=== PATIENT | male | born 1950 | race Caucasian/White ===

== ENCOUNTER 2020-12-09 06:38 | Day surgery (SDC) | payer BC, MEDICARE ==
[2020-12-09] MEDS ORDERED: Sodium Chloride 0.9% 1,000 ML IV SCH (07:00)
[2020-12-09] MEDS ORDERED: Midazolam 1 MG/ML 2 ML SDV ONE (07:16)
[2020-12-09] MEDS ORDERED: fentaNYL 100 MCG/2 ML SDV ONE (07:16)
[2020-12-09] MEDS ORDERED: Propofol 200 MG/20 ML SDV ONE (07:16)
--- NOTE | 2020-12-09 12:08 | OR ---
DATE OF PROCEDURE: 12/09/2020 SURGEON: Edward Barksdale MD PROCEDURE: Colonoscopy. FINDINGS: 1. Multiple small benign-appearing polyps in the ileum. 2. Diverticulosis, mild, mostly limited to sigmoid colon. PREOPERATIVE DIAGNOSIS: Screening colonoscopy. POSTOPERATIVE DIAGNOSIS: Screening colonoscopy. RISKS: Risks, benefits, alternatives, and limitations including, but not limited to infection, bleeding, perforation, false positives and false negatives were explained to the patient who wished to proceed. PROCEDURE IN DETAIL: The patient was placed in left lateral decubitus position. Digital rectal exam was performed without abnormality. Scope was introduced and advanced atraumatically to the ileocecal valve. A photo was taken of this. The ileum was cannulated. The patient had a few small benign-appearing polyps within the distal ileum. A few of these were sampled for pathological purposes. They did not appear to be bleeding nor inflamed. Scope was brought back to the remainder of the colon and retroflexed. The patient had diverticulosis that was described as mild without evidence of diverticulitis or bleeding. No abnormalities on retroflexion. No old or new blood. The prep was acceptable, approximately 90% of the luminal surface could be seen. The scope was then brought back up to the sigmoid colon. In the ascending colon, no abnormalities were noted. The patient tolerated the procedure well. Edward Barksdale MD /[id number]
== END 2020-12-09 09:36 | disposition home or self-care (01) ==
LOC: JP.SDS 06:38
PROVIDERS: ATTEND Surgery
DX: Z12.11 Encounter for screening for malignant neoplasm of colon (principal); K57.30 Diverticulosis of large intestine without perforation or abscess without bleeding; K63.89 Other specified diseases of intestine; E11.9 Type 2 diabetes mellitus without complications; I10 Essential (primary) hypertension; E78.5 Hyperlipidemia, unspecified; E66.9 Obesity, unspecified; Z68.28 Body mass index [BMI] 28.0-28.9, adult; Z88.6 Allergy status to analgesic agent
CPT/HCPCS: 45380; 88305; J2250; J2704; J3010; J7030

== ENCOUNTER 2025-06-10 15:57 | Emergency (ER) | payer MEDICARE, BC ==
[2025-06-10] MEDS ORDERED: Nitroglycerin 0.4 MG Tab.SL SL PRN (16:10)
[2025-06-10 16:23] LABS: BASOPHILS ABSOLUTE AUTO 0.06 K/uL (0.00-0.10); BASOPHILS PERCENT AUTO 0.7 % (0.1-1.3); EOSINOPHILS ABSOLUTE AUTO 0.15 K/uL (0.00-0.40); EOSINOPHILS PERCENT AUTO 1.8 % (0.0-5.4); IMMATURE GRAN PERCENT AUTO 0.2 % (0.0-0.7); LYMPHOCYTES ABSOLUTE AUTO 2.26 K/uL (0.8-3.3); LYMPHOCYTES PERCENT AUTO 26.8 % (11.4-47.7); MONOCYTES ABSOLUTE AUTO 0.74 K/uL (0.20-0.90); MONOCYTES PERCENT AUTO 8.8 % (3.3-12.6); NEUTROPHILS ABSOLUTE AUTO 5.19 K/uL (1.0-7.6); NEUTROPHILS PERCENT AUTO 61.7 % (40.0-78.1); PLATELET COUNT,PLT 248 K/uL (130-375); RED BLOOD CELL COUNT 4.76 M/uL (4.14-5.76); WHITE BLOOD CELL COUNT,WBC 8.4 K/uL (3.2-11.0)
[2025-06-10 16:24] LABS: IMMATURE GRAN ABSOLUTE AUTO 0.02 K/uL (0.00-0.23)
[2025-06-10 16:40] LABS: INR 1.1
[2025-06-10 16:50] LABS: A/G RATIO 1.2 (1.2-2.2); ALANINE AMINOTRANSFERASE,ALT 36 U/L (12-78); ASPARTATE AMNIOTRANSFERASE,AST 20 U/L (15-37); BILIRUBIN TOTAL 1.2 mg/dL (0.2-1.0); BLOOD UREA NITROGEN,BUN 14 mg/dL (7-18); CARBON DIOXIDE,CO2 31 mmol/L (21-32); CHLORIDE,CL 100 mmol/L (100-108); CREATININE 1.1 mg/dL (0.8-1.3); ESTIMATED GFR 71 mL/min (>60); GLUCOSE RANDOM 112 mg/dL (74-106); POTASSIUM,K 4.2 mmol/L (3.6-5.2); PRO B-TYPE NATRIUR PEPT,BNPPRO 82 pg/mL (5-125); PROTEIN TOTAL,TP 7.3 g/dL (6.4-8.2); SODIUM,NA 139 mmol/L (140-148); TROPONIN I HIGH SENSITIVITY 39.7 pg/mL (<=60.3)
[2025-06-10 17:24] LABS: APPEARANCE,URINE CLEAR (CLEAR); GLUCOSE,URINE NEGATIVE (NEGATIVE); OCCULT BLOOD,URINE TRACE-INTACT (NEGATIVE)
[2025-06-10 17:39] LABS: SQUAMOUS EPITHELIAL CELLS,UR NOT SEEN /HPF; UROTHELIAL CELLS,URINE NOT SEEN /HPF
[2025-06-10 17:40] LABS: AMPHETAMINES SCREEN, URINE NEGATIVE (NEGATIVE); METHADONE SCREEN, URINE NEGATIVE (NEGATIVE); METHAMPHETAMINES SCREEN, URINE NEGATIVE (NEGATIVE); OXYCODONE SCREEN,URINE NEGATIVE (NEGATIVE); PROPOXYPHENE SCREEN,URINE NEGATIVE (NEGATIVE); THC SCREEN,URINE 50 NG/ML NEGATIVE (NEGATIVE)
[2025-06-10] MEDS: Sodium Chloride 0.9% 10 ML Syringe FLUSH ONE (18:45)
[2025-06-10] MEDS: Iopamidol 755 Mg/ML 100 ML Bottle IV ONE (18:45)
[2025-06-10] MEDS: Heparin Sodium 5,000 Units/ML Vial IVPUSH ONE (23:03)
== END 2025-06-11 01:31 | disposition other institution (70) ==
LOC: JP.ED 15:57
DX: R07.89 Other chest pain (principal); I10 Essential (primary) hypertension; E78.00 Pure hypercholesterolemia, unspecified; Z88.5 Allergy status to narcotic agent; Z79.82 Long term (current) use of aspirin; Z79.899 Other long term (current) drug therapy
CPT/HCPCS: 36415; 71275; 80053; 80305; 80307; 81001; 83605; 83735; 83880; 84484; 85025; 85379; 85610; 85730; 93005; 96365; 96366; 99285; J1644; Q9967; 93010